=== PATIENT | female | born 1995 | race Caucasian/White ===

== ENCOUNTER 2017-12-04 11:45 | Emergency (ER) | payer SELFPAY ==
[~2017-12-04] VITALS: Ht 149.9 cm; Wt 61.2 kg
[~2017-12-04 11:45] MED LIST: FERR324T11 PO; PREN-385 PO
[2017-12-04 11:55] VITALS: BP 96/58
--- NOTE | 2017-12-04 12:00 | NUR ---
22Y/F BIB SELF C/O GENERALIZED ABD PAIN WITH N/V/D FOR 3 DAYS , DENIES DYSURIA, FEVERS/CHILLS. SKIN IS PINK/WARM/DRY; AAOX4 WITH EVEN AND STEADY GAIT; PATIENT STATES PAIN OF 3/10 AT THIS TIME; VSS; PATIENT POSITIONED FOR COMFORT; HOB ELEVATED; BEDRAILS UP X1; BED DOWN. ER MD MADE AWARE OF PT STATUS.
--- NOTE | 2017-12-04 12:30 | NUR ---
Patient being evaluated by physician at bedside.
[2017-12-04 13:11] VITALS: BP 98/60
--- NOTE | 2017-12-04 13:11 | NUR ---
Patient discharged with v/s stable. Written and verbal after care instructions given and explained. Patient alert, oriented and verbalized understanding of instructions. Ambulatory with steady gait. All questions addressed prior to discharge. ID band removed. Patient advised to follow up with PMD. Rx of LOMITIL AND ZOFRAN given. Patient educated on indication of medication including possible reaction and side effects. Opportunity to ask questions provided and answered.
== END 2017-12-04 13:11 | disposition home or self-care (01) ==
LOC: MED 11:45
DX: R19.7 Diarrhea, unspecified (principal); R11.2 Nausea with vomiting, unspecified; Z79.899 Other long term (current) drug therapy
CPT/HCPCS: 99283